=== PATIENT | male | born 1990 | race Caucasian/White ===

== ENCOUNTER 2016-10-29 16:05 | Inpatient (IN) | payer BC, OTHER ==
[~2016-10-29] VITALS: Ht 172.7 cm; Wt 77.1 kg
[2016-10-29 20:20] VITALS: BP 124/69
[2016-10-29] MEDS ORDERED: HYDROXYZINE PAMOATE 25 MG CAPSULE PO PRN (21:30)
[2016-10-29] MEDS ORDERED: LORAZEPAM 2 MG/1 ML VIAL IM PRN (21:30)
[2016-10-29] MEDS ORDERED: ONDANSETRON ODT 4 MG TAB.RAPDIS SL PRN (21:30)
[2016-10-29] MEDS ORDERED: DIAZEPAM 5 MG TABLET PO PRN (21:30)
[2016-10-29] MEDS ORDERED: IBUPROFEN 600 MG TABLET PO PRN (21:30)
[2016-10-29] MEDS ORDERED: ACETAMINOPHEN 325 MG TABLET PO PRN (21:30)
[2016-10-29] MEDS ORDERED: MAGNESIUM HYDROXIDE 30 ML LIQUID UDC PO PRN (21:30)
[2016-10-29] MEDS ORDERED: DICYCLOMINE HCL 20 MG TABLET PO PRN (21:30)
[2016-10-29] MEDS ORDERED: ONDANSETRON 4 MG/2 ML VIAL IM PRN (21:30)
[2016-10-29] MEDS ORDERED: DIAZEPAM 10 MG TABLET PO PRN ×2 (21:30)
[2016-10-29] MEDS ORDERED: MIRALAX 17 GM POWD.PACK PO PRN (21:30)
[2016-10-29] MEDS ORDERED: LOPERAMIDE HCL 2 MG CAPSULE PO PRN ×2 (21:30)
[2016-10-29] MEDS ORDERED: THIAMINE HCL 200 MG/2 ML VIAL IM ONE (21:30)
[2016-10-29] MEDS ORDERED: MAG HYDROX/AL HYDROX/SIMETH 30 ML LIQUID UDC PO PRN (21:30)
[2016-10-29] MEDS ORDERED: diphenhydrAMINE 50 MG CAPSULE PO PRN (21:30)
[2016-10-29] MEDS ORDERED: CLONIDINE HCL 0.1 MG TABLET PO PRN (21:30)
[2016-10-29 21:36] LABS: *AMPHETAMINE, URINE POSITIVE (NEGATIVE); *BARBITURATE, URINE NEGATIVE (NEGATIVE); *CANNABINOID, URINE NEGATIVE (NEGATIVE); *COCCAINE, URINE NEGATIVE (NEGATIVE); *OPIATE, URINE NEGATIVE (NEGATIVE); *PHENCYCLIDINE SCREEN,URINE NEGATIVE (NEGATIVE)
[2016-10-29 22:00] LABS: BASOPHILS % (AUTO) 0.3 % (0.0-2.0); EOSINOPHILS # (AUTO) 0.2 K/uL (0.0-0.7); EOSINOPHILS % (AUTO) 1.9 % (0.0-7.0); HEMATOCRIT 45.1 % (40.0-50.0); HEMOGLOBIN 15.6 g/dL (14.0-18.0); LYMPHOCYTES # (AUTO) 2.4 K/uL (0.8-4.8); LYMPHOCYTES % (AUTO) 30.2 % (20.5-51.5); MEAN CORPUSCULAR HEMOGLOBIN 29.3 uug (27.0-31.0); MEAN CORPUSCULAR HGB CONC 35 g/dL (32.0-37.0); MEAN CORPUSCULAR VOLUME 84.8 fL (82.0-92.0); MONOCYTES # (AUTO) 0.7 K/uL (0.1-1.30); MONOCYTES % (AUTO) 8.5 % (0.0-11.0); NEUTROPHILS # (AUTO) 4.8 K/uL (1.8-8.9); NEUTROPHILS % (AUTO) 59.1 % (38.5-71.5); PLATELET COUNT (AUTO) 254 K/uL (150-450); RED BLOOD CELL COUNT(AUTO) 5.31 MIL/uL (4.70-6.10); RED CELL DISTRIBUTION WIDTH 12.3 % (11.5-14.5); WHITE BLOOD COUNT (AUTO) 8.1 K/uL (4.0-11.2)
[2016-10-29] MEDS ORDERED: DIAZEPAM 10 MG TABLET PO SCH (22:00)
[2016-10-29] MEDS ORDERED: EPINEPHRINE 1 MG/1 ML AMP SQ PRN (22:00)
[2016-10-29 22:05] VITALS: BP 138/68
[2016-10-29 22:06] LABS: ETHANOL < 3 MG/DL (0-0)
[2016-10-29] MEDS ORDERED: DIAZEPAM 10 MG TABLET ONE (22:13)
[2016-10-29 22:19] LABS: ALANINE AMINOTRANSFERASE 67 U/L (16-63); ALBUMIN 4.2 g/dL (3.4-5.0); ALKALINE PHOSPHATASE 74 U/L (50-136); AMYLASE 44 U/L (25-115); ASPARTATE AMINOTRANSFERASE 24 U/L (15-37); BILIRUBIN,TOTAL 0.7 mg/dL (0.2-1.0); CALCIUM 9.3 mg/dL (8.5-10.1); CARBON DIOXIDE 32 mmol/L (21-32); CHLORIDE 101 mmol/L (98-107); CREATININE 1.3 mg/dL (0.6-1.3); GFR 67 mL/min (>60); GLUCOSE 126 mg/dL (74-106); HIV-1 p24 ANTIGEN NON REACTIVE (NONREACTIVE); HIV-1/2 ANTIBODY NON REACTIVE (NONREACTIVE); LIPASE 92 U/L (73-393); MAGNESIUM 2.2 mg/dL (1.8-2.4); SODIUM SERUM 140 mmol/L (136-145); TOTAL PROTEIN, SERUM 7.9 g/dL (6.4-8.2); UREA NITROGEN, BLOOD 14 mg/dL (7-18)
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
[2016-10-29 22:42] LABS: THYROID STIMULATING HORMONE 0.777 mIU/mL (0.358-3.740)
[2016-10-30] VITALS (7 sets, daily range): BP systolic 93–122; BP diastolic 48–70
[2016-10-30] MEDS ORDERED: diphenhydrAMINE 50 MG CAPSULE ONE (03:06)
[2016-10-30] MEDS ORDERED: DIAZEPAM 5 MG TABLET ONE (03:21)
--- NOTE | 2016-10-30 03:51 | NUR ---
PRN Valium and PRN Benadryl Pt c/o reports thoughts, is restless in bed, and unable to fall asleep. CIWA score 7. PRN Valium and Benadryl administered. Addendum: 10/30/16 at 0358 by PASQUALE VARGAS RN Correction: Note time is 3351. Correction: Pt c/o racing thoughts.
--- NOTE | 2016-10-30 04:15 | NUR ---
PRN Valium and Benadryl reassessment PRN Valium and Benadryl effective. Pt is lying comfortable in bed resting with eyes closed. Respirations even and unlabored.
--- NOTE | 2016-10-30 07:15 | NUR ---
END OF SHIFT Report provided to day shift nurse. Pt is lying in bed resting. He is a 26 yo male admitted to [facility] on 10/29 for ETOH and BZD dependence. He is A&O x4 and ambulatory. NKA, full code, regular diet. PMH is seizures r/t withdrawals x4, anaphylaxis x4 of unknown cause, bipolar, and anxiety. On admission he reported using Beer 32 oz and whiskey 375-750mL per day for the past 14 months, Valium 50mg per day for the past 14 months, methamphetamine IV 2 grams per day for the past 14 months, and GHB occasionally. He is ordered to start a 5 day valium taper today. Last CIWA was 7. One time valium 10mg administered. PRN Valium and Benadryl administered. He drank 860mL and slept for 3 hours.
--- NOTE | 2016-10-30 07:15 | NUR ---
Start of shift note SBAR report rcv'd. Pt was admitted for ETOH/benzo dependence. Pt has a PMH of seizure with withdrawal, and anaphylaxis of unknown origin, bipolar d/o and anxiety. Pt is starting on a subutex taper today. Pt is currently resting in his room. Pt bed is locked in a low position, call light within reach, all needs addressed at this time. Will continue to monitor pt.
[2016-10-30] MEDS ORDERED: TUBERCULIN,PURIF.PROT.DERIV. 5 TU/0.1 ML TEST ID ONE (09:00)
[2016-10-30] MEDS: THIAMINE HCL 100 MG TABLET PO SCH (09:35)
[2016-10-30] MEDS: DIAZEPAM 10 MG TABLET PO SCH ×4 (09:35→22:24)
[2016-10-30] MEDS: FOLIC ACID 1 MG TABLET PO SCH (09:35)
[2016-10-30] MEDS: MULTIVITAMINS,THERAPEUTIC TABLET PO SCH (09:35)
[2016-10-30] MEDS: GABAPENTIN 300 MG CAPSULE PO SCH ×3 (09:35→15:00)
--- NOTE | 2016-10-30 13:20 | NUR ---
communication Pt has a CIWA of 20, pt is pacing his room, pt is unable to sit still, pt is hyperverbal with racing thoughts, pt states that he hears voices at times, made the statement "I have no impulse control, like I look out the window and want to jump out, but I can't. I don't have any thoughts of suicide. I just can't control these thoughts". Dr Porter notified, he ordered valium 10mg PO x [address] Reed notified, ordered Seroquel 100mg PO x 1 now. Orders entered, unable to enter orders. Will continue to monitor pt. At this time, pt denies any SI/HI, and states that he does not want to harm himself.
[2016-10-30] MEDS ORDERED: DIAZEPAM 10 MG TABLET PO ONE ×2 (13:30)
[2016-10-30] MEDS ORDERED: QUETIAPINE FUMARATE 100 MG TABLET PO ONE (13:30)
[2016-10-30] MEDS ORDERED: HYDROXYZINE PAMOATE 25 MG CAPSULE PO PRN (13:30)
--- NOTE | 2016-10-30 14:20 | NUR ---
Reassessment Pt is sleeping in bed, respirations are even and unlabored. Pt had refused side rails up. Will continue to closely monitor. bed is locked in a low position, call light within reach.
--- NOTE | 2016-10-30 15:00 | NUR ---
Medication held 1500 gabapentin held d/t sleeping. Dr Porter aware.
--- NOTE | 2016-10-30 18:45 | NUR ---
End of shift note Pt was admitted for ETOH, benzo, meth and GHR withdrawal. Pt has a PMH of withdrawal induced seizures, bipolar with floyd and anaphylaxis of unknown origin. Pt was started on a valium taper during the shift, pt had an initial CIWA score of 8 at 0800. At 1315 pt had a CIWA score of 20 and increased agitation/anxiety Dr Porter and Dr Reed were notified. Pt had an extra dose of valium and a one time dose of seroquel. Pt slept well after administration of medication. Pt 1500 and 1700 medications were held d/t sleeping. When woken up, pt requests to be left alone to sleep. Pt has no complaints at this time. Will continue to monitor pt. All other needs addressed at this time. Will endorse SBAR to oncoming shift.
--- NOTE | 2016-10-30 19:50 | NUR ---
START OF SHIFT NOTE Received report from day shift nurse. Pt is 26 y o male, admitted on 10/30/15 for ETOH and BZO (valium and Klonopin) dependence. Pt also reported using methamphetamine and GHB. Pt is on 5 day Valium taper started 10/30/16. Pt in bed sleeping, awakened by verbal stimuli, oriented x 3. Pt states "I feel ok right now", denies anxiety. Noted moderate diaphoresis; no tremors noted. Pt denies tingling/ itching/ numbing, denies pain. No SI/HI, pt cooperative. Skin with blat hand healing abrasions, no drainage noted. RR unlabored, lung sounds clear. Heart rate regular. Bowel sounds active x 4, pt denies n/v, denies urinary difficulties. Pt states "I feel tired, just want t sleep now". Per day shift report, pt had episode of anxiety attack was given one time Valium and Seroquel, Dr Porter and Dr Reed made aware. PMH of withdrawal seizures, bipolar/ floyd disorder, anxiety, and anaphylaxis of unknown cause. Pt is on fall and seizure precautions. Will continue with plan of care.
[2016-10-30] MEDS ORDERED: GABAPENTIN 300 MG CAPSULE PO SCH (21:00)
[2016-10-31] VITALS: BP 92/54
--- NOTE | 2016-10-31 | NUR ---
CIWA CIWA assessment deferred per MD order; pt sleeping soundly, fall and seizure precautions in place, will continue to monitor Addendum: 10/31/16 at 0436 by LEROY BRAN RN Amended: Links added.
[2016-10-31 04:00] VITALS: BP 95/64
--- NOTE | 2016-10-31 04:00 | NUR ---
MISAELUT CIWA assessment deferred per MD order; pt sleeping soundly, fall precautions in place, will continue to monitor Addendum: 10/31/16 at 0707 by LEROY BRAN RN Amended: Links added.
[2016-10-31 05:55] LABS: HCV AB <0.1 s/co ratio (0.0-0.9); HEPATITIS B CORE AB, IgM Negative (Negative); HEPATITIS B SURFACE AG Negative (Negative)
--- NOTE | 2016-10-31 07:20 | NUR ---
Start of Shift Notes: Received patient in his room. Alert and verbally responsive. Able to make needs known. Respirations even and unlabored. No SOB noted. Skin warm and dry to touch. Abdomen soft and non-distended with (+) BS in all 4 quadrants. No complains of N/V/D and constipation noted. No complains of abdominal discomfort or cramps noted. Bladder non-distended. No complains of dysuria noted. Ambulatory ad dee dee with steady gait. Patient is a 26 year old male admitted for ETOH/BZO dependence who was placed on a 5-day Valium taper as ordered. No adverse reactions noted. Has past medical hx of bipolar disorder with floyd, anxiety and seizures related to withdrawal. NKA. FULL CODE. Regular diet. On fall and seizure precautions. Educated patient on his current plan of care for the day and his medication regimen. Encouraged oral fluid intake and encouraged group participation to learn new skills to prevent relapse. Will continue to monitor closely.
--- NOTE | 2016-10-31 07:55 | NUR ---
END OF SHIFT NOTE Pt is 26 y o male, admitted on 10/30/15 for ETOH and BZO (valium and Klonopin) dependence. Pt also reported using methamphetamine and GHB. Pt is on day 2 of 5 day Valium taper started 10/30/16. Pt presented with c/o sweat, tremors, last CIWA 4 at 2000. VSS. All scheduled medications were administered. Pt slept for 10 hrs. Fall and seizure precautions in place. Report endorsed to day shift,
[2016-10-31 08:00] VITALS: BP 119/80
[2016-10-31] MEDS: THIAMINE HCL 100 MG TABLET PO SCH (09:01)
[2016-10-31] MEDS: DIAZEPAM 10 MG TABLET PO SCH ×3 (09:01→21:23)
[2016-10-31] MEDS: FOLIC ACID 1 MG TABLET PO SCH (09:01)
[2016-10-31] MEDS: MULTIVITAMINS,THERAPEUTIC TABLET PO SCH (09:01)
[2016-10-31] MEDS: GABAPENTIN 300 MG CAPSULE PO SCH ×3 (09:01→21:23)
[2016-10-31 09:11] LABS: ALBUMIN 3.6 g/dL (3.4-5.0); BILIRUBIN,DIRECT 0.1 mg/dL (0.0-0.2); BILIRUBIN,TOTAL 0.3 mg/dL (0.2-1.0); CREATININE 1.3 mg/dL (0.6-1.3); POTASSIUM 4.3 mmol/L (3.5-5.1); TOTAL PROTEIN, SERUM 7.3 g/dL (6.4-8.2)
[2016-10-31 12:00] VITALS: BP 119/75
[2016-10-31 16:00] VITALS: BP 121/61
--- NOTE | 2016-10-31 16:00 | NUR ---
Behavior: Patient appears agitated. When asked patient what was bothering him, patient states that he feels hopeless. Denies any suicidal ideation and homicidal ideation. Patient was encouraged to verbalize his feelings and concerns but patient refuses and verbalizes that he wants to leave AMA. Also reported by FAIRGROUND OPERATOR that patient has been verbalized feeling of hopelessness. VS stable. Ck Reed. Addendum: 10/31/16 at 1625 [address] LUGO LVN Dr. Porter also aware of patient's behavior. He will come and speak to the patient at this time.
--- NOTE | 2016-10-31 16:08 | NUR ---
Communication: Dr. Reed made aware with orders to call crisis team for 5150 eval.
--- NOTE | 2016-10-31 16:15 | NUR ---
Crisis Team Eval: Called Liborio Muller and informed of MD's orders and patient's current psychiatric condition. Per Liborio, he will be here in 20 minutes.
--- NOTE | 2016-10-31 16:26 | NUR ---
Behavior: Patient continues to pace in his room, verbalizing "My life is ruined and over and it's never going to be the same." Attempted to speak with the patient, patient states "I do not need to talk to anyone, if you have any pill to let these thoughts out of my head, i'll take it." Encouraged patient to verbalize the "thoughts" that are racing through his head, but patient refuses to talk about it. Repeatedly saying "My life is over." Awaiting for crisis team to arrive. MD Porter and MD Reed in the unit at this time and ix currently evaluating the patient. Patient was placed on 1:1 at this time.
--- NOTE | 2016-10-31 16:32 | NUR ---
CIWA 11: Dr. Porter aware of patient's CIWA score of 11 due to pacing, agitation, fidgety and anxiety.
--- NOTE | 2016-10-31 16:45 | NUR ---
Crisis Team Eval: Liborio Muller from Crisis Team in to see and evaluate the patient at this time.
--- NOTE | 2016-10-31 17:30 | NUR ---
Nursing note: Patient is calm at this time. In bed with 1:1. Non-compliant with safety precautions. No angry outburst noted. Per Liborio, patient does not meet criteria for 5150 hold at this time. MD Porter and MD Reed aware. To continue to monitor patient's behavior and administer Seroquel 50 mg PO q 4 hours PRN. Orders noted and carried out.
--- NOTE | 2016-10-31 18:52 | NUR ---
End of Shift Notes: Patient is a 26 year old male admitted for ETOH and BZO dependence who was placed on a 5-day Valium taper as ordered. No adverse reactions noted. Patient has past medical hx of seizures, anaphylaxis x 4 for unknown cause, bipolar with floyd and anxiety. Prior to admission, patient was using 32 oz of beer and 375 to 750cc of whiskey, 50 mg of Valium x 14 months, 2 grams of methamphetamine and GHB. VS monitored closely q 4 hours. No significant abnormalities noted. Withdrawal symptoms were closely monitored. Initial CIWA 5, Last CIWA 11 due to anxiety and severe agitation. Patient presented with anxiety and agitation. Per patient, Valium has been helping him with his withdrawal symptoms. Denies S/I or H/I. On 1:1 for safety precautions. Able to participate in group despite his withdrawal symptoms. Noted with episodes of racing thoughts and sudden angry outburst. Dr. Reed and Dr. Porter aware. Compliant with care and treatment. All needs met and attended. Will continue o monitor closely.
--- NOTE | 2016-10-31 19:20 | NUR ---
START OF SHIFT NOTE Received report from day shift nurse. Pt is 26 y o male, admitted on 10/30/15 for ETOH and BZO (Valium and Klonopin) dependence. Pt also reported using methamphetamine and GHB. Pt is on 5 day Valium taper started 10/30/16. As per day shift reports, pt had anxiety exacerbation and verbalized suicidal ideations today, crisis team evaluated pt and decided that pt is safe to stay under current level of care. Pt is on 1:1 for safety. Pt in room, cooperative. Pt states "I am sorry that I caused all the problems and I dont need to be in psych morfin". Pt denies SI/HI at this moment. Established verbal contract with pt to notify nurse immediately if any thoughts of harming self or other will occur, pt agreed. Pt reports moderate anxiety, able to sit still, pt states "I just dont feel comfortable and cant calm myself down". Deep breathing and relaxing environment encouraged. Skin intact, warm, dry. No tremors noted. RR unlabored, heart rate regular. Last BM 10/31/16, pt denies n/v/d, denies urinary difficulties. PMH of withdrawal seizures, bipolar/ floyd disorder, anxiety, and anaphylaxis of unknown cause. Pt is on fall and seizure precautions. Will continue with plan of care.
[2016-10-31 20:00] VITALS: BP 132/88
[2016-10-31] MEDS: QUETIAPINE FUMARATE 25 MG TABLET PO PRN (21:23)
--- NOTE | 2016-10-31 21:23 | NUR ---
PRN Seroquel Pt c/o increasing anxiety and irritability, BP 132/76, HR 75, CIWA score 4. Administered Seroquel 50 mg PO prn as ordered. Fall and seizure precautions in place, will continue to monitor
--- NOTE | 2016-10-31 22:25 | NUR ---
REASSESSMENT Pt reports decreased in anxiety level, resting quietly in bed. All needs met at this time.
[2016-11-01] VITALS: BP 105/63
--- NOTE | 2016-11-01 | NUR ---
CIWA DEFERRED CIWA assessment deferred per MD order; pt sleeping soundly, fall precautions in place, will continue to monitor Addendum: 11/01/16 at 0421 by LEROY BRAN RN Amended: Links added.
[2016-11-01 04:00] VITALS: BP_SYST 101; BP_SYST 107; BP_DIAS 57; BP_DIAS 61
--- NOTE | 2016-11-01 04:00 | NUR ---
CIWA/COWS DEFERRED COWS/CIWA assessment deferred per MD order; pt sleeping soundly, fall precautions in place, will continue to monitor Addendum: 11/01/16 at 0621 by LERYO BRAN RN Amended: Links added.
--- NOTE | 2016-11-01 07:30 | NUR ---
Start of shift note; Patient is AOx4. Patient is a 26 y/o male admitted on 10/29/16 for ETOH/Benzo/Meth dependence. Patient was placed on a 5 day Valium taper, no adverse reactions noted. Patient reported history of seizures x4 d/t withdrawals last episode was 2011. Patient also reported history of anaphylaxis, unknown cause , bipolar disorder and anxiety. Patient is currently on 1:1 supervision for safety, to be re-evaluated by MD today. Patient is on fall and seizure precaution. Will closely monitor patient.
--- NOTE | 2016-11-01 07:39 | NUR ---
START OF SHIFT NOTE Received report from day shift nurse. Pt is 26 y o male, admitted on 10/30/15 for ETOH and BZO (Valium and Klonopin) dependence. Pt also reported using methamphetamine and GHB. Pt is on 5 day Valium taper started 10/30/16. As per day shift reports, pt had anxiety exacerbation and verbalized suicidal ideations today, crisis team evaluated pt and decided that pt is safe to stay under current level of care. Pt is on 1:1 for safety. Pt in room, cooperative. Pt states I am sorry that I caused all the problems and I dont need to be in psych morfin. Pt denies SI/HI at this moment. Established verbal contract with pt to notify nurse immediately if any thoughts of harming self or other will occur, pt agreed. Pt reports moderate anxiety, able to sit still, pt states I just dont feel comfortable and cant calm myself down. Deep breathing and relaxing environment encouraged. Skin intact, warm, dry. No tremors noted. RR unlabored, heart rate regular. Last BM 10/31/16, pt denies n/v/d, denies urinary difficulties. PMH of withdrawal seizures, bipolar/ floyd disorder, anxiety, and anaphylaxis of unknown cause. Pt is on fall and seizure precautions. Will continue with plan of care.
[2016-11-01 08:00] VITALS: BP 96/58
[2016-11-01] MEDS: DIAZEPAM 5 MG TABLET PO SCH ×5 (08:30→21:01)
[2016-11-01] MEDS: FOLIC ACID 1 MG TABLET PO SCH ×2 (08:30→08:41)
[2016-11-01] MEDS: THIAMINE HCL 100 MG TABLET PO SCH ×2 (08:30→08:41)
[2016-11-01] MEDS: GABAPENTIN 300 MG CAPSULE PO SCH ×4 (08:30→21:02)
[2016-11-01] MEDS: MULTIVITAMINS,THERAPEUTIC TABLET PO SCH ×2 (08:30→08:41)
[2016-11-01 15:28] VITALS: BP 127/88
[2016-11-01 16:00] VITALS: BP 120/64
--- NOTE | 2016-11-01 18:25 | NUR ---
End of shift note; Patient is AOX4. Patient remained compliant with treatment plan. Medications were effective in reducing withdrawal symptoms. Patient's last CIWA is 2 at 1600. Patient is on fall and seizure precaution. Bed in lowest position,call light within reach. Met all patient's needs.
[2016-11-01 20:00] VITALS: BP 118/59
--- NOTE | 2016-11-01 20:00 | NUR ---
Start of Shift Patient is a 26-year old, male, admitted on 10/29/16 for ETOH and Benzo Dependence. Patient was placed on a 5-day Valium taper, started 10/30/2016, and tolerating well. Patient reported history of seizures x4 d/t withdrawals, last episode was 2011. Patient also reported history of anaphylaxis of unknown cause, bipolar disorder and anxiety. Patient is AAOx4 and with no SOB noted. Not in respi distress. Pt is ambulatory with steady gait and with no skin issues. Fall, universal and safety prec in place. Call light within reach. Kept pt warm, dry and comfortable. Latest CIWA=5. All needs met. Will continue to monitor pt.
[2016-11-01] MEDS: QUETIAPINE FUMARATE 25 MG TABLET PO PRN (23:23)
--- NOTE | 2016-11-01 23:24 | NUR ---
RN note PRN Seroquel Pt c/o feeling anxious and noted to be restless. Administered Seroquel 50 mg PO. Will monitor and reassess.
[2016-11-02] VITALS: BP 122/65
--- NOTE | 2016-11-02 00:45 | NUR ---
RN note reassess Pt asleep on bed, with no facial grimacing nor SOB noted. Seroquel effective.
[2016-11-02 04:00] VITALS: BP 117/64
--- NOTE | 2016-11-02 07:10 | NUR ---
End of Shift Patient is a 26-year old, male, admitted on 10/29/16 for ETOH and Benzo Dependence. Patient was placed on a 5-day Valium taper, started 10/30/2016, and tolerating well. Patient reported history of seizures x4 d/t withdrawals, last episode was 2011. Patient also reported history of anaphylaxis of unknown cause, bipolar disorder and anxiety. Patient is AAOx4 and with no SOB noted. Not in respi distress. Pt is ambulatory with steady gait and with no skin issues. Fall, universal and safety prec in place. Call light within reach. Kept pt warm, dry and comfortable. Latest CIWA=4, slept for . All needs met. Endorsed to AM shift nurse for continuity of care. Addendum: 11/02/16 at 0718 by WILFRID CHIRINOS RN Latest CIWA=4, slept for 7 hours.
[2016-11-02 08:00] VITALS: BP 122/60
--- NOTE | 2016-11-02 08:05 | NUR ---
START OF SHIFT: RECEIVED PT A/O X 4. HE PRESENTS WITH IRRITABLE MOOD AND CONGRUENT AFFECT. HE IS SLIGHTLY AGITATED AND VERBALIZED WANTING TO LEAVE. ENCOURAGED PT TO STAY AND COMPLETE DETOX. VALIUM TAPER IN PROGRESS. CIWA 2. POOR EYE CONTACT NOTED. ENCOURAGED GROUP ATTENDANCE TO IMPROVE COPING SKILLS AND PREVENT RELAPSE. WILL CONTINUE TO PROVIDE SAFE AND SUPPORTIVE ENVIRONMENT.
[2016-11-02] MEDS: MULTIVITAMINS,THERAPEUTIC TABLET PO SCH (09:29)
[2016-11-02] MEDS: GABAPENTIN 300 MG CAPSULE PO SCH ×2 (09:29→14:34)
[2016-11-02] MEDS: THIAMINE HCL 100 MG TABLET PO SCH (09:29)
[2016-11-02] MEDS: FOLIC ACID 1 MG TABLET PO SCH (09:29)
[2016-11-02] MEDS: DIAZEPAM 5 MG TABLET PO SCH ×3 (09:29→21:36)
[2016-11-02 12:00] VITALS: BP 130/76
--- NOTE | 2016-11-02 12:05 | NUR ---
PT VERBALIZING THAT HE WANTS TO LEAVE AMA. INVOLVED MULTIDISCIPLINARY TEAM TO REDIRECT PT.
--- NOTE | 2016-11-02 14:50 | NUR ---
PT IS REFUSING 1500 MEDS AND STATES HE HAS NOT DECIDED ON IF HE WANTS TO STAY OR NOT. VERBALLY EDUCATED PT ON POTENTIAL CONSEQUENCES OF REFUSING MEDS. PT EXPRESSED VERBAL UNDERSTANDING OF EDUCATION. WILL CONTINUE TO MONITOR.
--- NOTE | 2016-11-02 17:47 | NUR ---
PT IS REFUSED VITAL SIGNS.
--- NOTE | 2016-11-02 19:00 | NUR ---
END OF SHIFT: PT IS ON VALIUM TAPER. HE WANTED TO LEAVE AMA TODAY BUT WAS REDIRECTED BY STAFF TO STAY. HE REFUSED 1500 MEDS AND 1600 VITAL SIGNS. HIS MOOD IS LABILE WITH CONGRUENT AFFECT. LAST CIWA 1. NO PRNS GIVEN .OFFERED SUPPORT.WILL PASS SHIFT REPORT TO NIGHT NURSE.
[2016-11-02 20:00] VITALS: BP 120/61
--- NOTE | 2016-11-02 20:00 | NUR ---
Start of Shift Patient is a 26-year old, male, admitted on 10/29/16 for ETOH and Benzo Dependence. Patient was placed on a 5-day Valium taper, started 10/30/2016, and tolerating well. Patient reported history of seizures x4 d/t withdrawals, last episode was 2011. Patient also reported history of anaphylaxis of unknown cause, bipolar disorder and anxiety. Patient is AAOx4 and with no SOB noted. Not in respi distress. With slight anxiety observed. No suicidal ideation nor homicidal ideation noted. Pt is ambulatory with steady gait and with no skin issues. Fall, universal and safety prec in place. Call light within reach. Kept pt warm, dry and comfortable. Latest CIWA=3 . All needs met. Endorsed to AM shift nurse for continuity of care. Addendum: 11/03/16 at 0132 by WILFRID CHIRINOS RN Will continue to monitor pt.
[2016-11-02] MEDS ORDERED: GABAPENTIN 300 MG CAPSULE PO SCH (21:00)
[2016-11-02] MEDS: QUETIAPINE FUMARATE 25 MG TABLET PO PRN (21:42)
--- NOTE | 2016-11-02 21:42 | NUR ---
RN note PRN Seroquel Pt c/o inability to sleep and is noted to be increasingly anxious and agitated. Administered Seroquel 50 mg PO as ordered. No SOB noted. Will monitor and reassess.
--- NOTE | 2016-11-02 22:45 | NUR ---
RN note reassess Pt asleep on bed, with no facial grimacing nor SOB noted. Seroquel effective.
[2016-11-03] VITALS: BP 115/58
--- NOTE | 2016-11-03 04:02 | NUR ---
RN note Pt refused vital signs check and CIWA assessment despite explanation of risks and benefits. RR=14, no SOB noted nor facial grimacing noted. Will continue to monitor.
--- NOTE | 2016-11-03 07:07 | NUR ---
End of Shift Patient is a 26-year old, male, admitted on 10/29/16 for ETOH and Benzo Dependence. Patient was placed on a 5-day Valium taper, started 10/30/2016, and tolerating well. Patient reported history of seizures x4 d/t withdrawals, last episode was 2011. Patient also reported history of anaphylaxis of unknown cause, bipolar disorder and anxiety. Patient is AAOx4 and with no SOB noted. Not in respi distress. With slight anxiety observed. No suicidal ideation nor homicidal ideation noted. Pt is ambulatory with steady gait and with no skin issues. Fall, universal and safety prec in place. Call light within reach. Kept pt warm, dry and comfortable. Latest CIWA=2, slept for 8 hours . All needs met. Endorsed to AM shift nurse for continuity of care.
[2016-11-03 08:00] VITALS: BP 113/71
--- NOTE | 2016-11-03 08:00 | NUR ---
START OF SHIFT: RECEIVED PT A/O X 4. HE PRESENTS WITH GUARDED AFFECT AND ANXIOUS MOOD. HE STATES HE FEELS MILDLY ANXIOUS. VALIUM TAPER IN PROGRESS. CIWA 1. HE STATES HE IS ATTENDING GROUPS AND DISCUSSED HIS HISTORY WITH ADDICTION AND EXPRESSED A STRONG DESIRE TO STAY CLEAN AND SOBER. ENCOURAGED INCREASED FLUIDS TO ASSIST IN FACILITATING DETOX PROCESS. WILL CONTINUE TO MONITOR AND OFFER SUPPORT.
[2016-11-03] MEDS: THIAMINE HCL 100 MG TABLET PO SCH (09:00)
[2016-11-03] MEDS: GABAPENTIN 300 MG CAPSULE PO SCH ×2 (09:00→15:00)
[2016-11-03] MEDS ORDERED: DIAZEPAM 5 MG TABLET PO SCH (09:00)
[2016-11-03] MEDS: MULTIVITAMINS,THERAPEUTIC TABLET PO SCH (09:00)
[2016-11-03] MEDS: FOLIC ACID 1 MG TABLET PO SCH (09:00)
[2016-11-03 12:00] VITALS: BP 105/65
--- NOTE | 2016-11-03 15:48 | NUR ---
PT BECAME AGITATED AND STARTED RAISING HIS VOICE" I WANT TO GET OUT OF HERE". ENCOURAGED PT TO STAY AND COMPLETE DETOX. INVOLVED INTERDISCIPLINARY TEAM. MADE AWARE.
--- NOTE | 2016-11-03 16:22 | NUR ---
DISCHARGE AMA: PT WAS INSISTENT ON LEAVING AMA DESPITE NUMEROUS ATTEMPTS BY STAFF MEMBERS TO INTERVENE AND REDIRECT. VERBALLY EXPRESSED POTENTIAL CONSEQUENCES OF LEAVING DETOX AMA. BELONGINGS RETURNED.A LIST OF RESOURCES GIVEN TO PT. HE DENIED S/I AND HI. PT WAS ESCORTED OUT OF THE BUILDING AT 1618.
== END 2016-11-03 16:18 | disposition left against medical advice (07) | DRG 894 ==
LOC: SRC 19:20
PROVIDERS: ADMIT Internal Medicine; ATTEND Internal Medicine
PROC: HZ2ZZZZ Detoxification Services for Substance Abuse Treatment (ICD-10-PCS; principal; 2016-10-29)
PROC: HZ31ZZZ Individual Counseling for Substance Abuse Treatment, Behavioral (ICD-10-PCS; 2016-10-30)
PROC: HZ41ZZZ Group Counseling for Substance Abuse Treatment, Behavioral (ICD-10-PCS; 2016-11-01)
DX: F10.230 Alcohol dependence with withdrawal, uncomplicated (principal); R45.851 Suicidal ideations; F13.230 Sedative, hypnotic or anxiolytic dependence with withdrawal, uncomplicated; F15.23 Other stimulant dependence with withdrawal; K70.10 Alcoholic hepatitis without ascites; Y90.9 Presence of alcohol in blood, level not specified; Z82.49 Family history of ischemic heart disease and other diseases of the circulatory system; Z84.1 Family history of disorders of kidney and ureter; Z81.3 Family history of other psychoactive substance abuse and dependence; F11.21 Opioid dependence, in remission; G47.00 Insomnia, unspecified; F17.210 Nicotine dependence, cigarettes, uncomplicated; F41.9 Anxiety disorder, unspecified; Z87.892 Personal history of anaphylaxis; I49.9 Cardiac arrhythmia, unspecified
CPT/HCPCS: 36415; 70030-TC; 80307; 80324; 80346; 83690; 83735; 84443; 85025; 86580; 86592; 86705; 86803; 87340; 87806; 93005; A4663; G6040-TC; J3411; Q0163

== ENCOUNTER 2017-07-30 08:42 | Inpatient (IN) | payer BC, OTHER ==
[~2017-07-30] VITALS: Ht 172.7 cm; Wt 77.1 kg
[2017-07-30] MEDS ORDERED: DIAZEPAM 10 MG TABLET PO PRN ×2 (11:30)
[2017-07-30] MEDS ORDERED: LOPERAMIDE HCL 2 MG CAPSULE PO PRN ×2 (11:30)
[2017-07-30] MEDS ORDERED: THIAMINE HCL 200 MG/2 ML VIAL IM ONE (11:30)
[2017-07-30] MEDS ORDERED: diphenhydrAMINE 50 MG CAPSULE PO PRN (11:30)
[2017-07-30] MEDS ORDERED: ONDANSETRON 4 MG/2 ML VIAL IM PRN (11:30)
[2017-07-30] MEDS ORDERED: MAGNESIUM HYDROXIDE 30 ML LIQUID UDC PO PRN (11:30)
[2017-07-30] MEDS ORDERED: MAG HYDROX/AL HYDROX/SIMETH 30 ML LIQUID UDC PO PRN (11:30)
[2017-07-30] MEDS ORDERED: ONDANSETRON ODT 4 MG TAB.RAPDIS SL PRN (11:30)
[2017-07-30] MEDS ORDERED: MIRALAX 17 GM POWD.PACK PO PRN (11:30)
[2017-07-30] MEDS ORDERED: IBUPROFEN 600 MG TABLET PO PRN (11:30)
[2017-07-30] MEDS ORDERED: LORAZEPAM 2 MG/1 ML VIAL IM PRN (11:30)
[2017-07-30] MEDS ORDERED: ACETAMINOPHEN 325 MG TABLET PO PRN (11:30)
[2017-07-30] MEDS ORDERED: DIAZEPAM 5 MG TABLET PO PRN (11:30)
[2017-07-30] MEDS ORDERED: DICYCLOMINE HCL 20 MG TABLET PO PRN (11:30)
[2017-07-30] MEDS ORDERED: CLONIDINE HCL 0.1 MG TABLET PO PRN (11:30)
[2017-07-30 12:21] LABS: BASOPHILS % (AUTO) 0.4 % (0.0-2.0); EOSINOPHILS # (AUTO) 0.1 K/uL (0.0-0.7); EOSINOPHILS % (AUTO) 2.1 % (0.0-7.0); HEMOGLOBIN 16.3 g/dL (12.5-16.3); LYMPHOCYTES # (AUTO) 1.6 K/uL (20.0-40.0); LYMPHOCYTES % (AUTO) 26.2 % (20.5-51.5); MEAN CORPUSCULAR HEMOGLOBIN 28.2 uug (23.8-33.4); MEAN CORPUSCULAR HGB CONC 35 g/dL (32.5-36.3); MEAN CORPUSCULAR VOLUME 81.2 fL (73.0-96.2); MONOCYTES # (AUTO) 0.5 K/uL (2.0-10.0); MONOCYTES % (AUTO) 7.7 % (0.0-11.0); NEUTROPHILS # (AUTO) 3.9 K/uL (1.8-8.9); NEUTROPHILS % (AUTO) 63.6 % (38.5-71.5); PLATELET COUNT (AUTO) 280 K/uL (152-348); RED BLOOD CELL COUNT(AUTO) 5.79 MIL/uL (4.06-5.63); WHITE BLOOD COUNT (AUTO) 6.1 K/uL (3.6-10.2)
[2017-07-30 12:25] LABS: ETHANOL < 3 MG/DL (0-0)
[2017-07-30 12:30] LABS: ALANINE AMINOTRANSFERASE 30 U/L (16-63); ALKALINE PHOSPHATASE 93 U/L (50-136); ASPARTATE AMINOTRANSFERASE 19 U/L (15-37); BILIRUBIN,TOTAL 0.4 mg/dL (0.2-1.0); CARBON DIOXIDE 29 mmol/L (21-32); CHLORIDE 101 mmol/L (98-107); CREATININE 1.3 mg/dL (0.6-1.3); GLUCOSE 124 mg/dL (74-106); MAGNESIUM 1.9 mg/dL (1.8-2.4); POTASSIUM 4.1 mmol/L (3.5-5.1); TOTAL PROTEIN, SERUM 8.4 g/dL (6.4-8.2); UREA NITROGEN, BLOOD 16 mg/dL (7-18)
[2017-07-30] MEDS: DIAZEPAM 10 MG TABLET PO SCH ×3 (13:45→21:11)
[2017-07-30 13:49] VITALS: BP 137/83
[2017-07-30] MEDS ORDERED: EPIN0.1517 IM (15:23)
[2017-07-30] MEDS ORDERED: EPIN0.1519 IM (15:23)
[2017-07-30 16:00] VITALS: BP 121/71
[2017-07-30] MEDS ORDERED: THIAMINE HCL 200 MG/2 ML VIAL ONE (17:23)
[2017-07-30] MEDS ORDERED: [UNRECOGNIZED DRUG - OTHER] IM PRN (17:30)
[2017-07-30 17:56] LABS: *AMPHETAMINE, URINE POSITIVE (NEGATIVE); *BARBITURATE, URINE NEGATIVE (NEGATIVE); *CANNABINOID, URINE NEGATIVE (NEGATIVE); *COCCAINE, URINE NEGATIVE (NEGATIVE); *OPIATE, URINE NEGATIVE (NEGATIVE); *PHENCYCLIDINE SCREEN,URINE NEGATIVE (NEGATIVE)
[2017-07-30 20:00] VITALS: BP 121/75
[2017-07-30] MEDS: GABAPENTIN 300 MG CAPSULE PO SCH (21:10)
[2017-07-31] VITALS: BP 122/72
[2017-07-31 08:00] VITALS: BP 111/60
[2017-07-31] MEDS ORDERED: MULTIVITAMINS,THERAPEUTIC TABLET PO SCH (09:00)
[2017-07-31] MEDS ORDERED: THIAMINE HCL 100 MG TABLET PO SCH (09:00)
[2017-07-31] MEDS ORDERED: TUBERCULIN,PURIF.PROT.DERIV. 5 TU/0.1 ML TEST ID ONE (09:00)
[2017-07-31] MEDS ORDERED: FOLIC ACID 1 MG TABLET PO SCH (09:00)
[2017-07-31] MEDS ORDERED: DIAZEPAM 5 MG TABLET PO SCH ×2 (09:00)
[2017-07-31] MEDS: GABAPENTIN 300 MG CAPSULE PO SCH (09:40)
[2017-07-31 12:00] VITALS: BP 134/72
[2017-07-31] MEDS: DIAZEPAM 10 MG TABLET PO SCH ×2 (12:07→17:00)
[2017-07-31 14:07] LABS: HEPATITIS B SURFACE AG Negative (Negative)
[2017-07-31] MEDS ORDERED: DIAZEPAM 5 MG TABLET PO PRN (14:15)
[2017-07-31] MEDS ORDERED: DIAZEPAM 10 MG TABLET PO PRN ×2 (14:15)
[2017-07-31] MEDS ORDERED: GABAPENTIN 300 MG CAPSULE PO SCH (15:00)
[2017-08-01] MEDS ORDERED: DIAZEPAM 5 MG TABLET PO SCH ×2 (09:00)
[2017-08-01] MEDS ORDERED: HYDROXYZINE PAMOATE 25 MG CAPSULE PO PRN (09:30)
[2017-08-02] MEDS ORDERED: DIAZEPAM 5 MG TABLET PO SCH (09:00)
== END 2017-07-31 17:05 | disposition left against medical advice (07) | DRG 894 ==
LOC: SRC 10:37
PROVIDERS: ADMIT Internal Medicine; ATTEND Internal Medicine
PROC: HZ2ZZZZ Detoxification Services for Substance Abuse Treatment (ICD-10-PCS; principal; 2017-07-30)
PROC: HZ41ZZZ Group Counseling for Substance Abuse Treatment, Behavioral (ICD-10-PCS; 2017-07-31)
PROC: HZ31ZZZ Individual Counseling for Substance Abuse Treatment, Behavioral (ICD-10-PCS; 2017-07-31)
DX: F13.230 Sedative, hypnotic or anxiolytic dependence with withdrawal, uncomplicated (principal); F10.21 Alcohol dependence, in remission; F15.23 Other stimulant dependence with withdrawal; F17.210 Nicotine dependence, cigarettes, uncomplicated; F41.9 Anxiety disorder, unspecified; Z87.892 Personal history of anaphylaxis; F11.21 Opioid dependence, in remission; G47.00 Insomnia, unspecified; Z82.49 Family history of ischemic heart disease and other diseases of the circulatory system; Z81.3 Family history of other psychoactive substance abuse and dependence; Z84.1 Family history of disorders of kidney and ureter; F31.9 Bipolar disorder, unspecified; Z91.89 Other specified personal risk factors, not elsewhere classified
CPT/HCPCS: 36415; 70030-TC; 80307; 80324; 83735; 85025; 86580; 86592; 86705; 86803; 87340; 87806; A4663; G0480; J3411; Q0163